=== PATIENT | female | born 1985 | race Caucasian/White ===

== ENCOUNTER 2019-06-19 09:55 | Emergency (ER) | payer MEDICAID ==
[~2019-06-19] VITALS: Wt 80.0 kg
[~2019-06-19 09:55] MED LIST: IBUP200C11 PO; INSU100I12 SQ; INSU100I33 SC; MERO1VIA IV; METF-849 PO; Vancomycin Iv Per Pharmacy XX
== END 2019-06-19 13:09 | disposition home or self-care (01) ==
LOC: E/R 09:55
DX: Z45.2 Encounter for adjustment and management of vascular access device (principal); E11.9 Type 2 diabetes mellitus without complications; Z79.84 Long term (current) use of oral hypoglycemic drugs
CPT/HCPCS: 99282